=== PATIENT | female | born 1950 | race Caucasian/White ===

== ENCOUNTER 2018-03-20 13:52 | Outpatient (CLI) | payer MEDICARE ==
--- NOTE | 2018-03-20 16:10 | CT ---
CT CHEST NONCONTRAST HIGH RESOLUTION: 03/20/18 HISTORY: Dyspnea. Fibrosis. FINDINGS: Mild pulmonary hyperinflation. Peripheral interstitial thickening extending to the pleural surfaces. Moderate degree of central lobular emphysema. Widespread distribution. Mild peripheral tubular bronch iectasis. No lobar consolidation, pleural fluid, or pneumothorax. Lack of contrast limits evaluation of the mediastinum. No bulky adenopathy. Calcification in the edward rial structures. Small hiatal hernia. IMPRESSION: Mild to moderate interstitial fibrosis. Predominant centri-lobular emphysematous pattern. POS: [facility]
--- NOTE | 2018-03-21 15:47 | PFT ---
PATIENT HISTORY: HEIGHT: 64 IN WEIGHT: 175 SMOKER: NO HOW LON YRS PACKS PER DAY PRODUCTIVE COUGH: YES LUNG DISEASE: PHYSICIAN INTERPRETATION FINAL REPORT: Patient had good effort and cooperation [employer] the morning of the study FVC 2.74 (91%), FEV1 2.22(103%), FEV1/FVC 0.81 (113%). TLC 3.77 (76%), FRC 2.23(77%), RV 0.97 (49%). Diffusion 10.91 (60%). The FEV1 and FVC fall within the normal limits. There is no evidence of obstructive profile, based on the ratio. The flow volume loops demonstrate poor initiation, but are otherwise essentially unremarkable. Lung volumes including TLC, FRC, RV are slightly reduced. Diffusion capacity is mildly impaired. IMPRESSION: Overall, these pulmonary function studies are most consistent with an isolated reduced gas exchange. Clinical and radiographic correlation for pulmonary vascular disease and/or early interstitial process should be considered. No priors for comparison. Sampler First: CHEIKH Pmp Project Manager: CHEIKH SEARS
== END 2018-03-20 13:53 | disposition home or self-care (01) ==
LOC: CP 13:52
PROVIDERS: ATTEND Internal Medicine Pulmonary Disease
DX: J84.112 Idiopathic pulmonary fibrosis (principal); J43.2 Centrilobular emphysema
CPT/HCPCS: 71250; 94010; 94727; 94729

== ENCOUNTER 2019-12-23 15:12 | Outpatient (CLI) | payer MEDICARE ==
--- NOTE | 2019-12-23 15:37 | RAD ---
EXAM: Chest 2 views: HISTORY: Dyspnea COMPARISON: None. FINDINGS: There is a normal-sized cardiomediastinal silhouette. Increased interstitial markings are present. T here is elevation of the right hemidiaphragm. There is no evidence of consolidation, mass, or pleural effusion. The bones are unremarkable. IMPRESSION: No evidence of acute cardiopulmonary disease
== END 2019-12-23 15:13 | disposition home or self-care (01) ==
LOC: RAD 15:12
PROVIDERS: ATTEND Internal Medicine Pulmonary Disease
DX: R06.00 Dyspnea, unspecified (principal)
CPT/HCPCS: 71046